=== PATIENT | male | born 1965 | race Caucasian/White ===

== ENCOUNTER 2021-11-13 00:42 | Emergency (ER) | payer BC ==
[~2021-11-13] VITALS: Ht 177.8 cm; Wt 81.7 kg
== END 2021-11-13 02:13 | disposition home or self-care (01) ==
LOC: ED 00:42
DX: S01.01XA Laceration without foreign body of scalp, initial encounter (principal); S81.012A Laceration without foreign body, left knee, initial encounter; W01.10XA Fall on same level from slipping, tripping and stumbling with subsequent striking against unspecified object, initial encounter
CPT/HCPCS: 36415; 70450; 72125; 80053; 85025; 85610; 86850; 86900; 86901; 90715; 99284-25; G0480